=== PATIENT | male | born 1965 | race Caucasian/White ===

== ENCOUNTER 2019-09-22 19:30 | Outpatient (CLI) | payer MEDICARE, MEDICAID | END 2019-09-22 19:31 | disposition home or self-care (01) | LOC: SLEEPLAB 19:30 | PROVIDERS: ATTEND Family Medicine | DX: G47.33 Obstructive sleep apnea (adult) (pediatric) (principal); R53.83 Other fatigue; R06.83 Snoring; Z68.41 Body mass index [BMI] 40.0-44.9, adult | CPT/HCPCS: 95811 ==

== ENCOUNTER 2020-07-20 14:30 | Inpatient (IN) | payer MEDICARE, MEDICAID ==
[2020-07-20 15:34] LABS: #Lymphocytes 0.5 thou/uL (1.20-3.40); #Monocytes 0.8 thou/uL (0.11-0.59); #Neutrophils 4.3 thou/uL (1.40-6.50); %Eosinophils 0.3 % (0.0-10.0); %Lymphocytes 8.4 % (21.0-51.0); %Monocytes 14.2 % (0.0-10.0); %Neutrophils 77.1 % (42.0-75.0); Mean Corpuscular HGB CONC 33.4 g/dL (32.0-36.0); Mean Corpuscular Hemoglobin 27.6 pg (27.0-31.0); Mean Corpuscular Volume 82.5 fL (78.0-98.0); Mean Platelet Volume 7.7 fL (7.4-10.4); Platelet Count 275 thou/uL (130-400); RBC Distribution Width 13.3 % (11.5-14.5); Red Blood Cell (RBC) Count 5.09 mill/uL (4.70-6.10); White Blood Cell (WBC) Count 5.5 thou/uL (4.8-10.8)
--- NOTE | 2020-07-20 15:43 | RAD ---
Exam: Chest one view HISTORY:Cough Comparison: 01/11/2015 FINDINGS: Cardiac silhouette:Enlarged, in part due to portable technique Aorta: Unremarkable Pulmonary vessels: Normal Costophrenic angles: Clear LUNGS: Asymmetric opacification left lung may in part be due to patient position. However, left lung infiltrate cannot be excluded. Additional patchy opacities in the lung bases may represent atelectasis given diminished lung volumes. Pneumothorax: None Osseous abnormalities: None IMPRESSION: 1. Cardiomegaly likely due to portable technique 2. Diminished lung volumes, likely due to poor the upper 3. Asymmetric opacification of the left lung. Correlate for possible left lung infiltrate. [address] radiograph with better inspiration would be beneficial.
--- NOTE | 2020-07-20 15:51 | CT ---
Exam: Head CT without contrast HISTORY: Altered mental status. COVID positive patient. COMPARISON: 01/11/2015 FINDINGS: Hemorrhage: No intraparenchymal hemorrhage or extra-axial hematoma. Brain parenchyma: Stable encephalomalacia and gliosis involving the right frontal and temporal lobes. There is associated expected dilatation of the temporal horn of the left lateral ventricle. There is asymmetric prominence of the frontal horn of the right lateral ventricle, unchanged.Stable cortica lly based calcification along the right frontal cortex Ventricular system: As above Calvarium: Intact. Sinuses and mastoid air cells: Adequate aeration. IMPRESSION: 1. No significant interval change. No acute intracranial process
[2020-07-20 15:58] LABS: ALT (SGPT) 36 U/L (8-55); AST (SGOT) 41 U/L (5-34); Albumin 4.1 g/dL (3.5-5.0); Alkaline Phosphatase 52 U/L (40-110); Anion Gap 12 mmol/L (10-20); BUN (Urea Nitrogen) 19 mg/dL (8.4-25.7); Bilirubin, Total 0.3 mg/dL (0.2-1.2); Calc. Creatinine Clearance 0 mL/min (70-130); Calcium 9.4 mg/dL (7.8-10.44); Carbon Dioxide 36 mmol/L (22-29); Chloride 95 mmol/L (98-107); Estimated GFR-MDRD 85; Globulin 3.9 g/dL (2.4-3.5); Glucose 121 mg/dL (70-105); Lipase 38 U/L (8-78); Potassium 3.4 mmol/L (3.5-5.1); Sodium 140 mmol/L (136-145)
[2020-07-20] MEDS ORDERED: Ibuprofen 800 MG TAB ONE (15:59)
--- NOTE | 2020-07-20 15:59 | CT ---
Exam: Abdomen CT without contrast Pelvic CT without contrast HISTORY: COVID positive patient. Dry cough and fever. Abdominal pain. COMPARISON: None FINDINGS: Abdomen CT: Lung bases:Bibasilar dependent atelectatic changes versus bibasilar pneumonia/aspiration. Trace bilat eral effusions Heart size: Cardiomegaly. No significant pericardial fluid Aorta: Normal caliber. No periaortic fat stranding. IVC: IVC filter is just inferior to the origin of the left and right renal vein Solid organs: Limited evaluation by the lack of IV contrast. Grossly no solid organ abnormality. Lymph nodes: No gastrohepatic, retrocrural or periportal lymphadenopathy Gallbladder: Grossly unremarkable. No CT evidence of cholecystitis Mesentery: No mass, lymphadenopathy, free air or free fluid Kidneys: Bilaterally, no hydronephrosis, nephrolithiasis or perinephric fat stranding. Bilateral uret ers have a normal caliber. No hydroureter, periureteral fat stranding or ureterolithiasis. Alimentary canal: Limited evaluation by the lack of oral contrast. No evidence of a bowel obstruction . Normal ileocecal junction. Normal caliber appendix. Scattered diverticulosis. No diverticulitis. CT PELVIS: No mass, adenopathy, free air or free fluid. Urinary bladder: Hyperdensity along the posterior floor the bladder is nonspecific and may represent bladder wall calcification. Osseous structures: No lytic or blastic lesions IMPRESSION: 1. No evidence of obstructive uropathy 2. Normal caliber appendix 3. No bowel obstruction 4. Bibasilar pleural effusion with lower lobe consolidation due to atelectasis, pneumonia or aspirati on.
[2020-07-20] MEDS ORDERED: cefTRIAXone\\ROCEPHIN 2 GM VIAL ONE (16:17)
[2020-07-20] MEDS ORDERED: Azithromycin 500 MG VIAL ONE (16:38)
[2020-07-20 18:55] LABS: Lactic Acid 0.8 mmol/L (0.5-2.2)
--- NOTE | 2020-07-20 21:07 | PDOC.HHP ---
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 Of note he tested positive for Covid in the nursing facility. It was unclear the date however I talked to his who said this was 6 days ago. Besides increasing oxygen demands it was noted that he had a few episodes of seizure activity a day before presentation. He also had poor bowel movement and distended abdomen with concerns for possible intestinal obstruction. He was sent to the ED for evaluation this afternoon. At presentation his blood pressure was 156/88, pulse 81 respiratory 31 temperature 100.4 and saturating at 94 on 4 L oxygen. WBC was generally unremarkable, never had hypokalemia of 3.4 lactate 2.2 mildly elevated AST at 41.. Chest x-ray showed cardiomegaly diminished lung volumes and asymmetrical opacification on lung on the left. CT scanning of his abdomen showed no acute events. However bibasilar pleural effusion was noted with lower lobe consolidation due to atelectasis pneumonia/aspiration. He was given azithromycin and ceftriaxone. Hospitalist team was consulted for admission. Hospitalist ROS - Review of Systems ROS unobtainable: due to mental status Hospitalist History - Past Medical History Other Medical History: Seizure disorder, CVA, - Past Surgical History Past Surgical History: reports: no pertinent history - Family History Family History: reports: no pertinent history - Social History Other Social History: Lives in senior living. - Exam General Appearance: ill appearing General - other findings: Respiratory distress Heart: RRR, no murmur, no rubs Respiratory: tachypneic Respiratory - other findings: Bilateral coarse breath sounds Gastrointestinal - other findings: Slightly distended. No apparent tenderness. Bowel sounds present Extremities: no cyanosis, no clubbing, 1+ LE edema Neurological: hemiplegia. negative: facial droop Neurological - other findings: Juan Carlos 1/5 right and left upper limb Psychiatric: somnolent, lethargic Psychiatric - other findings: Oriented to self. Not place and time Hospitalist Results - Labs Result Diagrams: 07/20/20 15:22 07/20/20 15:22 Lab results: WBC 5.5 thou/uL (4.8-10.8) 07/20/20 15:22 Hgb 14.0 g/dL (14.0-18.0) 07/20/20 15:22 Hct 42.0 % (42.0-52.0) 07/20/20 15:22 MCV 82.5 fL (78.0-98.0) 07/20/20 15:22 Plt Count 275 thou/uL (130-400) 07/20/20 15:22 Neutrophils % 77.1 % (42.0-75.0) H 07/20/20 15:22 Sodium 140 mmol/L (136-145) 07/20/20 15:22 Potassium 3.4 mmol/L (3.5-5.1) L 07/20/20 15:22 Chloride 95 mmol/L (98-107) L 07/20/20 15:22 Carbon Dioxide 36 mmol/L (22-29) H 07/20/20 15:22 BUN 19 mg/dL (8.4-25.7) 07/20/20 15:22 Creatinine 0.92 mg/dL (0.7-1.3) 07/20/20 15:22 Glucose 121 mg/dL (70-105) H 07/20/20 15:22 Lactic Acid 0.8 mmol/L (0.5-2.2) 07/20/20 18:33 Calcium 9.4 mg/dL (7.8-10.44) 07/20/20 15:22 Total Bilirubin 0.3 mg/dL (0.2-1.2) 07/20/20 15:22 AST 41 U/L (5-34) H 07/20/20 15:22 ALT 36 U/L (8-55) 07/20/20 15:22 Alkaline Phosphatase 52 U/L (40-110) 07/20/20 15:22 Troponin I 0.028 ng/mL (< 0.028) 07/20/20 15:22 Serum Total Protein 8.0 g/dL (6.0-8.3) 07/20/20 15:22 Albumin 4.1 g/dL (3.5-5.0) 07/20/20 15:22 Lipase 38 U/L (8-78) 07/20/20 15:22 Hospitalist H&P A/P - Plan Plan: This is a 55-year-old male patient with a history of CVA with residual right- sided weakness, seizure disorder, hypertension who was brought him to the ED from his nursing facility on account of increasing oxygen demand and alteration in mental state. He tested positive for Covid 6 days ago Acute hypoxic respiratory failure Likely secondary to Covid pneumonia/bacterial pneumonia Oxygen therapy as needed High flow oxygen if demands increase Transfer to ICU if 2 months resident Pneumonia due to Covid Worsening oxygen demand, infiltrate seen on lower lung archuleta on CT. We will start him on convalescent plasma and steroids Unable to start remdesivir given that he is out of the window. D-dimer orderedstart high-dose VTE Lovenox prophylaxis if elevated Monitor closely History of seizure disorder Noted to have been having seizures a day ago Start levetiracetam Seizure precautions Consider neuro consult in a.m. Hypokalemia Mild Electrolyte replacement protocol Monitor BM Previous stroke Residual right-sided deficit VT prophylaxisLovenox CODE STATUSfull code
[2020-07-20] MEDS ORDERED: Dexamethasone 10 MG in Sodium Chloride 0.9% 50 ML IVPB SCH (21:30)
[2020-07-20 23:00] LABS: Prothrombin Time 13.6 sec (12.0-14.7)
[2020-07-20] MEDS ORDERED: Electrolyte Replacement Protoc 1 EACH EACH FS SCH (23:00)
[2020-07-20] MEDS ORDERED: levETIRAcetam in NS 1,000 MG in Premix Bag 1 BAG IVPB SCH (23:30)
[2020-07-21 01:19] LABS: Bacteria/HPF None Seen HPF (None Seen); Bilirubin Negative (Negative); Blood, Urine Negative (Negative); Clarity Clear (Clear); Glucose, Urine (Dipstick) Normal (Negative); Ketone, Urine Trace mg/dL (Negative); Leukocyte Negative Leu/uL (Negative); Mucous/LPF 1+ LPF (<2+); Nitrite Negative (Negative); Protein, Urine (Dipstick) 50 mg/dL (Neg-Trace); RBC/HPF 0-3 HPF (0-3); Specific Gravity, Urine 1.028 (1.002-1.036); Squamous Epithelial None Seen HPF (0-3); Urobilinogen Normal mg/dL (Less than 2); WBC/HPF 0-3 HPF (0-3); Yeast-Budding 1+ HPF (None Seen); pH, Urine 5.5 (5.0-9.0)
[2020-07-21 01:21] LABS: Urine Culture Reflex No No
[2020-07-21 03:43] VITALS: BMI 41.2
[2020-07-21] MEDS ORDERED: Acetaminophen 650 MG Suppository PR PRN (04:38)
[2020-07-21 06:19] LABS: #Basophils 0.1 thou/uL (0.0-0.2); #Lymphocytes 0.2 thou/uL (1.20-3.40); #Monocytes 0.3 thou/uL (0.11-0.59); #Neutrophils 3.6 thou/uL (1.40-6.50); %Basophils 1.8 % (0.0-1.0); %Eosinophils 0.1 % (0.0-10.0); %Lymphocytes 5.8 % (21.0-51.0); %Monocytes 6.8 % (0.0-10.0); %Neutrophils 85.6 % (42.0-75.0); Hemoglobin 12.6 g/dL (14.0-18.0); Mean Corpuscular HGB CONC 32.4 g/dL (32.0-36.0); Mean Corpuscular Hemoglobin 26.7 pg (27.0-31.0); Mean Corpuscular Volume 82.4 fL (78.0-98.0); Mean Platelet Volume 8.1 fL (7.4-10.4); Platelet Count 261 thou/uL (130-400); RBC Distribution Width 13.3 % (11.5-14.5); Red Blood Cell (RBC) Count 4.73 mill/uL (4.70-6.10); White Blood Cell (WBC) Count 4.2 thou/uL (4.8-10.8)
[2020-07-21 06:38] LABS: Anion Gap 17 mmol/L (10-20); BUN (Urea Nitrogen) 21 mg/dL (8.4-25.7); Calc. Creatinine Clearance 199 mL/min (70-130); Calcium 8.8 mg/dL (7.8-10.44); Carbon Dioxide 27 mmol/L (22-29); Chloride 100 mmol/L (98-107); Estimated GFR-MDRD Greater than 90; Glucose 148 mg/dL (70-105); Potassium 3.7 mmol/L (3.5-5.1); Sodium 140 mmol/L (136-145)
[2020-07-21] MEDS ORDERED: FLU VACC QS2020-21(6MOS UP)/PF 60 MCG/0.5 ML SYRINGE IM ONE (09:00)
[2020-07-21] MEDS: levETIRAcetam in NS 1,000 MG in Premix Bag 1 BAG IVPB SCH ×2 (09:34→21:28)
--- NOTE | 2020-07-21 10:08 | RAD ---
CHEST 1 VIEW: Date: 07/21/2020 INDICATION: Hypoxia. COMPARISON: 07/20/2020. FINDINGS: There is mild right basilar atelectasis. Cardiomegaly persists. No pleural effusion or pneumothorax i s evident. No acute osseous abnormality is evident. IMPRESSION: No acute abnormality. Persistent right basilar atelectasis. POS: BH
[2020-07-21] MEDS: Dexamethasone 10 MG in Sodium Chloride 0.9% 50 ML IVPB SCH (12:05)
[2020-07-21] MEDS: Hydrochlorothiazide 25 MG TAB PO SCH (12:07)
[2020-07-21 14:02] LABS: SARS-CoV-2 MS2 Positive; SARS-CoV-2 N Gene Positive; SARS-CoV-2 S Gene Positive; SARS-CoV-2 by NAA DETECTED (NotDetected); SARS-CoV-2 orf1ab Positive
--- NOTE | 2020-07-21 15:55 | PQF ---
CLINICAL DOCUMENTATION CLARIFICATION FORM: Dear Dr. Meza Date: 07/21/20 Please exercise your independent, professional judgment in responding to the clarification form. Clinical indicators are provided on the bottom of this form for your review. Please check appropriate box(es): [X ] Sepsis due to: viral pneumonia vs bacterial Due to: [ ] Device (please specify) [ ] Severe sepsis with associated acute organ dysfunction: [ ] Acute Respiratory Failure [ ] Acute Kidney injury w/o ATN [ ] Acute Kidney Injury w ATN [ ] Encephalopathy (metabolic) (septic) [ ] Disseminated Intravascular Coagulopathy (DIC) [ ] Hepatic Failure [ ] Additional/Other: please specify: [ ] Localized infection without sepsis [ ] SIRS due to non-infectious process (please specify etiology) [ ] with organ dysfunction [ ] without organ dysfunction [ ] Other diagnosis [ ] Unable to determine In addition, please specify: Present on Admission (POA): [ X] Yes [ ] No [ ] Unable to determine For continuity of documentation, please document condition throughout progress notes and discharge summary. Thank You. To be completed by CDI/Coding staff for physician review: CLINICAL INDICATORS - SIGNS / SYMPTOMS / LABS / RESULTS AND LOCATION IN MR ER NOTE: "SEPSIS" RR 31 TEMP 100.4 WBC 07/21: 4.2 CRP 07/20: 7.2 RISK FACTORS / RESULTS AND LOCATION IN MR COVID + (ER, H&P) PNEUMONIA (ER, H&P) TREATMENTS / RESULTS AND LOCATION IN MR IV AZITHROMYCIN (ER) IV ROCEPHIN (ER) IV FLUIDS (ER) BLOOD CULTURES 07/20 CDS Signature: Emiliana Aflaro RN Phone #: [phone] Date: 07/21/20 This is a permanent part of the Medical Record [facility]
--- NOTE | 2020-07-21 18:00 | PDOC.HOSPP ---
- Subjective Encounter Date: 07/21/20 Encounter Time: 11:30 Subjective: F/u: COVID The patient was seen sitting up in his chair. He reported some chest congestion. He denies significant shortness of breath. He does have an occasional cough. THe patient states the year is 2012 and the month is October. He knows his birthday. He stated the city was [place] - Objective Vital Signs & Weight: Vital Signs (12 hours) Temp Pulse Resp BP Pulse Ox 07/21/20 16:34 98.8 F 66 22 H 159/88 H 92 L 07/21/20 13:40 98 F 22 H 169/94 H 94 L 07/21/20 09:35 99.3 F 76 22 H 152/88 H 93 L 07/21/20 08:50 92 L Weight Admit Weight 304 lb 3.2 oz Weight 304 lb 3.2 oz I&O: 07/20/20 07/21/20 07/22/20 06:59 06:59 06:59 Intake Total 150 0 Output Total 5 Balance -1905 0 Result Diagrams: 07/21/20 05:44 07/21/20 05:44 Hospitalist ROS - Review of Systems Constitutional: denies: fever, chills - Medication Medications: Active Medications Generic Name Dose Route Start Last Admin Trade Name Freq PRN Reason Stop Dose Admin Acetaminophen 650 mg 07/21/20 04:38 07/21/20 05:54 Acetaminophen 650 Mg Suppository [place] 650 mg Q4H PRN Administration Headache/Fever or Pain Hydrochlorothiazide 25 mg 07/21/20 09:00 07/21/20 12:07 Hydrochlorothiazide 25 Mg Tab PO 25 mg DAILY TINA Administration Dexamethasone 10 mg/ Sodium 51 mls @ 100 mls/hr 07/21/20 09:00 07/21/20 12:05 Chloride IVPB 51 mls DAILY TINA Administration Levetiracetam 1,000 mg/ Device 100 mls @ 200 mls/hr 07/21/20 09:00 07/21/20 09:34 IVPB 100 mls BID TINA Administration Metoprolol Succinate 100 mg 07/21/20 09:00 07/21/20 12:07 Metoprolol Succinate Xl 100 Mg Tab PO 100 mg DAILY TINA Administration - Exam General Appearance: NAD General - other findings: morbidly obese Eye: PERRL, anicteric sclera ENT: normocephalic atraumatic, no oropharyngeal lesions Neck: no JVD Heart: RRR, no murmur, no gallops, no rubs Respiratory - other findings: mild crackles at the bases Gastrointestinal: soft, non-tender, non-distended, normal bowel sounds Gastrointestinal - other findings: morbidly obese Extremities: no cyanosis, no clubbing, no edema Skin: normal turgor, no lesions, no rashes Neurological: cranial nerve grossly intact, normal sensation to touch, no weakness, no focal deficits Hosp A/P - Plan CT head 07/20: no significant disease Chest x ray 07/20: cardiomegaly. Asymmetric opacification of the left lung. CT abdomen/pelvis: bibasilar pleural effusion with lower consolidation due to atelectasis, pneumonia or aspiration This is a 55 year old male with past medical history of BPH, epilepsy, GERD, hypertension and hemorrhagic CVA who presented with increasing oxygen requirements and some seizure Acute hypoxic respiratory failure secondary to COVID pneumonia - chest X ray showed opacification of the left lung - start dexamethasone Seizures - continue keppra 1000 mg bid Hypertension - continue hydrochlorothiazide and metoprolol Code status: full code
[2020-07-21] MEDS: guaiFENesin ER 600 MG TAB PO SCH (21:28)
[2020-07-21] MEDS: Tamsulosin HCl 0.4 MG CAP PO SCH (21:28)
[2020-07-22] MEDS: Acetaminophen 325 MG TAB PO PRN ×4 (03:42→20:41)
[2020-07-22 07:08] LABS: Hemoglobin 12.5 g/dL (14.0-18.0); Mean Corpuscular HGB CONC 31.8 g/dL (32.0-36.0); Mean Corpuscular Hemoglobin 26.7 pg (27.0-31.0); Mean Corpuscular Volume 84.1 fL (78.0-98.0); Mean Platelet Volume 7.9 fL (7.4-10.4); Platelet Count 304 thou/uL (130-400); RBC Distribution Width 13.3 % (11.5-14.5); Red Blood Cell (RBC) Count 4.69 mill/uL (4.70-6.10); White Blood Cell (WBC) Count 7.6 thou/uL (4.8-10.8)
[2020-07-22] MEDS: guaiFENesin ER 600 MG TAB PO SCH ×2 (07:54→20:41)
[2020-07-22] MEDS: Dexamethasone 10 MG in Sodium Chloride 0.9% 50 ML IVPB SCH (07:54)
[2020-07-22] MEDS: Hydrochlorothiazide 25 MG TAB PO SCH (07:59)
[2020-07-22] MEDS: levETIRAcetam in NS 1,000 MG in Premix Bag 1 BAG IVPB SCH ×2 (10:09→20:40)
--- NOTE | 2020-07-22 15:58 | PDOC.HOSPP ---
- Subjective Encounter Date: 07/22/20 Encounter Time: 15:56 Subjective: F/u : COVID The patient appears more alert today. He reports intermittent cough and shortness of breath. He has not gotten out of bed. He knows he is in [facility] . He is on 5L saturating 96% - Objective Vital Signs & Weight: Vital Signs (12 hours) Temp Pulse Resp BP Pulse Ox 07/22/20 15:45 99.2 F 71 20 159/82 H 94 L 07/22/20 11:21 97.2 F L 65 18 162/92 H 94 L 07/22/20 08:00 98.2 F 72 18 163/93 H 94 L 07/22/20 04:00 98.3 F 76 26 H 170/91 H 96 Weight Admit Weight 304 lb 3.2 oz Weight 304 lb 3.2 oz Most Recent Monitor Data Heart Rate from ECG 74 I&O: 07/21/20 07/22/20 07/23/20 06:59 06:59 06:59 Intake Total 150 1190 Output Total 2055 Balance -1905 1190 Result Diagrams: 07/22/20 06:45 07/21/20 05:44 Hospitalist ROS - Review of Systems Constitutional: denies: fever, chills - Medication Medications: Active Medications Generic Name Dose Route Start Last Admin Trade Name Freq PRN Reason Stop Dose Admin Acetaminophen 650 mg 07/21/20 04:38 07/21/20 05:54 Acetaminophen 650 Mg Suppository [place] 650 mg Q4H PRN Administration Headache/Fever or Pain Acetaminophen 650 mg 07/22/20 03:29 07/22/20 14:07 Acetaminophen 325 Mg Tab PO 650 mg Q4H PRN Administration Headache/Fever or Pain Guaifenesin 600 mg 07/21/20 21:00 07/22/20 07:54 Guaifenesin Er 600 Mg Tab PO 600 mg Q12HR TINA Administration Hydrochlorothiazide 25 mg 07/21/20 09:00 07/22/20 07:59 Hydrochlorothiazide 25 Mg Tab PO 25 mg DAILY TINA Administration Dexamethasone 10 mg/ Sodium 51 mls @ 100 mls/hr 07/21/20 09:00 07/22/20 07:54 Chloride IVPB 51 mls DAILY TINA Administration Levetiracetam 1,000 mg/ Device 100 mls @ 200 mls/hr 07/21/20 09:00 07/22/20 10:09 IVPB 100 mls BID TINA Administration Metoprolol Succinate 100 mg 07/21/20 09:00 07/22/20 07:59 Metoprolol Succinate Xl 100 Mg Tab PO 100 mg DAILY TINA Administration Tamsulosin HCl 0.4 mg 07/21/20 21:00 07/21/20 21:28 Tamsulosin Hcl 0.4 Mg Cap PO 0.4 mg HS TINA Administration - Exam General Appearance: NAD, awake alert General - other findings: morbidly obese ENT: normocephalic atraumatic, no oropharyngeal lesions Neck: no JVD Heart: RRR, no murmur, no gallops, no rubs Respiratory: CTAB, no wheezes, no rales, no ronchi Gastrointestinal: soft, non-tender, non-distended, normal bowel sounds Extremities: no cyanosis, no clubbing, no edema Skin: normal turgor, no lesions, no rashes Hosp A/P - Plan CT head 07/20: no significant disease Chest x ray 07/20: cardiomegaly. Asymmetric opacification of the left lung. CT abdomen/pelvis: bibasilar pleural effusion with lower consolidation due to atelectasis, pneumonia or aspiration This is a 55 year old male with past medical history of BPH, epilepsy, GERD, hypertension and hemorrhagic CVA who presented with increasing oxygen requirements and some seizure Acute hypoxic respiratory failure secondary to COVID pneumonia vs mild pulmonary edema - chest X ray showed opacification of the left lung - started dexamethasone. He received convalescent plasma - out of window for remdesivir. - will add dexamethasone - on 5L nasal cannula, attempt to wean further to maintain sat > 92% - will give one dose of lasix 20 mg IV due to pleural effusion Seizures - continue keppra 1000 mg bid Hypertension - continue hydrochlorothiazide and metoprolol Code status: full code
[2020-07-22] MEDS ORDERED: Furosemide 20 MG/2 ML VIAL SLOW IVP SCH (16:00)
[2020-07-22] MEDS: Tamsulosin HCl 0.4 MG CAP PO SCH (20:41)
[2020-07-22] MEDS: Doxycycline 100 MG CAP PO SCH (20:41)
[2020-07-23 06:33] LABS: Hemoglobin 12.3 g/dL (14.0-18.0); Mean Corpuscular HGB CONC 32.4 g/dL (32.0-36.0); Mean Corpuscular Hemoglobin 27.2 pg (27.0-31.0); Mean Corpuscular Volume 83.9 fL (78.0-98.0); Mean Platelet Volume 7.8 fL (7.4-10.4); Platelet Count 319 thou/uL (130-400); RBC Distribution Width 13.3 % (11.5-14.5); Red Blood Cell (RBC) Count 4.51 mill/uL (4.70-6.10)
[2020-07-23] MEDS: Doxycycline 100 MG CAP PO SCH ×2 (07:48→20:52)
[2020-07-23] MEDS: Hydrochlorothiazide 25 MG TAB PO SCH (07:48)
[2020-07-23] MEDS: guaiFENesin ER 600 MG TAB PO SCH ×2 (07:48→20:52)
[2020-07-23] MEDS: levETIRAcetam in NS 1,000 MG in Premix Bag 1 BAG IVPB SCH ×2 (07:49→20:52)
[2020-07-23] MEDS: Dexamethasone 10 MG in Sodium Chloride 0.9% 50 ML IVPB SCH (09:42)
[2020-07-23] MEDS: Acetaminophen 325 MG TAB PO PRN ×2 (09:43→17:44)
--- NOTE | 2020-07-23 17:32 | PDOC.HOSPP ---
- Subjective Encounter Date: 07/23/20 Encounter Time: 08:00 Subjective: F/u: COVID The patient is more alert today, however is not eating much. He reports decreased appetite. He is unsure if he had any bowel movements. He has been weaned down to 3L nasal cannula - Objective Vital Signs & Weight: Vital Signs (12 hours) Temp Pulse Resp BP Pulse Ox 07/23/20 15:43 98.4 F 62 18 154/98 H 93 L 07/23/20 11:16 97.6 F 81 18 148/67 H 92 L 07/23/20 08:00 97.7 F 71 18 166/85 H 91 L Weight Admit Weight 304 lb 3.2 oz Weight 304 lb 3.2 oz Most Recent Monitor Data Heart Rate from ECG 74 I&O: 07/22/20 07/23/20 07/24/20 06:59 06:59 06:59 Intake Total 5378 434 8916 Output Total 600 Balance 3313 853 0315 Result Diagrams: 07/23/20 06:09 07/21/20 05:44 Hospitalist ROS - Review of Systems Constitutional: denies: fever, chills - Medication Medications: Active Medications Generic Name Dose Route Start Last Admin Trade Name Freq PRN Reason Stop Dose Admin Acetaminophen 650 mg 07/21/20 04:38 07/21/20 05:54 Acetaminophen 650 Mg Suppository [place] 650 mg Q4H PRN Administration Headache/Fever or Pain Acetaminophen 650 mg 07/22/20 03:29 07/23/20 09:43 Acetaminophen 325 Mg Tab PO 650 mg Q4H PRN Administration Headache/Fever or Pain Doxycycline Hyclate 100 mg 07/22/20 21:00 07/23/20 07:48 Doxycycline 100 Mg Cap PO 100 mg BID TINA Administration Guaifenesin 600 mg 07/21/20 21:00 07/23/20 07:48 Guaifenesin Er 600 Mg Tab PO 600 mg Q12HR TINA Administration Hydrochlorothiazide 25 mg 07/21/20 09:00 07/23/20 07:48 Hydrochlorothiazide 25 Mg Tab PO 25 mg DAILY TINA Administration Dexamethasone 10 mg/ Sodium 51 mls @ 100 mls/hr 07/21/20 09:00 07/23/20 09:42 Chloride IVPB 51 mls DAILY TINA Administration Levetiracetam 1,000 mg/ Device 100 mls @ 200 mls/hr 07/21/20 09:00 07/23/20 07:49 IVPB 100 mls BID TINA Administration Metoprolol Succinate 100 mg 07/21/20 09:00 07/23/20 07:49 Metoprolol Succinate Xl 100 Mg Tab PO 100 mg DAILY TINA Administration Tamsulosin HCl 0.4 mg 07/21/20 21:00 07/22/20 20:41 Tamsulosin Hcl 0.4 Mg Cap PO 0.4 mg HS TINA Administration - Exam General Appearance: NAD, awake alert General - other findings: obese Eye: PERRL, anicteric sclera ENT: normocephalic atraumatic, no oropharyngeal lesions Neck: no JVD Heart: RRR, no murmur, no gallops, no rubs Respiratory: CTAB, no wheezes, no rales, no ronchi Gastrointestinal: soft, non-tender, non-distended, normal bowel sounds, no hepatomegaly Extremities: no cyanosis, no clubbing, no edema Skin: normal turgor, no lesions, no rashes Neurological: cranial nerve grossly intact, normal sensation to touch, no weakness Musculoskeletal: normal tone, normal strength, no muscle wasting Psychiatric: A&O x 3 Hosp A/P - Plan CT head 07/20: no significant disease Chest x ray 07/20: cardiomegaly. Asymmetric opacification of the left lung. CT abdomen/pelvis: bibasilar pleural effusion with lower consolidation due to atelectasis, pneumonia or aspiration This is a 55 year old male with past medical history of BPH, epilepsy, GERD, hypertension and hemorrhagic CVA who presented with increasing oxygen requirements and some seizure Acute hypoxic respiratory failure secondary to COVID pneumonia vs mild pulmonary edema - chest X ray showed opacification of the left lung. - continue dexamethasone. He received convalescent plasma - out of window for remdesivir. -s/p one dose of lasix 07/22. Continue to wean oxygen, currently down to 3L Seizures - continue keppra 1000 mg bid Hypertension - continue hydrochlorothiazide and metoprolol Dispo: PT recommends mcc placement Code status: full code
[2020-07-23] MEDS: Tamsulosin HCl 0.4 MG CAP PO SCH (20:52)
[2020-07-24] MEDS: Acetaminophen 325 MG TAB PO PRN ×2 (08:25→15:25)
[2020-07-24] MEDS: Dexamethasone 10 MG in Sodium Chloride 0.9% 50 ML IVPB SCH (08:25)
[2020-07-24] MEDS: Doxycycline 100 MG CAP PO SCH ×2 (08:25→20:45)
[2020-07-24] MEDS: Hydrochlorothiazide 25 MG TAB PO SCH (08:26)
[2020-07-24] MEDS: guaiFENesin ER 600 MG TAB PO SCH ×2 (08:26→20:45)
[2020-07-24] MEDS: levETIRAcetam in NS 1,000 MG in Premix Bag 1 BAG IVPB SCH ×2 (08:28→20:45)
[2020-07-24] MEDS ORDERED: Megestrol Acetate 40 MG TAB PO SCH (15:22)
--- NOTE | 2020-07-24 15:24 | PDOC.HOSPP ---
- Subjective Encounter Date: 07/24/20 Encounter Time: 08:00 Subjective: F/u: COVID The patient was noted to have intermittent dry cough. He has no shortness of breath. He is on 3L nasal cannula, plans to wean down further He is still not eating much and just asked for soda. He also complains of back pain and is not ambulating - Objective Vital Signs & Weight: Vital Signs (12 hours) Temp Pulse Resp BP Pulse Ox 07/24/20 09:15 3 L 07/24/20 09:00 98.0 F 69 20 173/95 H 92 L 07/24/20 05:57 155/83 H 07/24/20 04:00 69 20 92 L Weight Admit Weight 304 lb 3.2 oz Weight 304 lb 3.2 oz Most Recent Monitor Data Heart Rate from ECG 74 I&O: 07/23/20 07/24/20 07/25/20 06:59 06:59 06:59 Intake Total 920 2059 Output Total 600 Balance 320 2059 Result Diagrams: 07/23/20 06:09 07/21/20 05:44 Hospitalist ROS - Review of Systems Constitutional: denies: fever, chills - Medication Medications: Active Medications Generic Name Dose Route Start Last Admin Trade Name Freq PRN Reason Stop Dose Admin Acetaminophen 650 mg 07/21/20 04:38 07/21/20 05:54 Acetaminophen 650 Mg Suppository [place] 650 mg Q4H PRN Administration Headache/Fever or Pain Acetaminophen 650 mg 07/22/20 03:29 07/24/20 08:25 Acetaminophen 325 Mg Tab PO 650 mg Q4H PRN Administration Headache/Fever or Pain Doxycycline Hyclate 100 mg 07/22/20 21:00 07/24/20 08:25 Doxycycline 100 Mg Cap PO 100 mg BID TINA Administration Guaifenesin 600 mg 07/21/20 21:00 07/24/20 08:26 Guaifenesin Er 600 Mg Tab PO 600 mg Q12HR TINA Administration Hydrochlorothiazide 25 mg 07/21/20 09:00 07/24/20 08:26 Hydrochlorothiazide 25 Mg Tab PO 25 mg DAILY TINA Administration Dexamethasone 10 mg/ Sodium 51 mls @ 100 mls/hr 07/21/20 09:00 07/24/20 08:25 Chloride IVPB 51 mls DAILY TINA Administration Levetiracetam 1,000 mg/ Device 100 mls @ 200 mls/hr 07/21/20 09:00 07/24/20 08:28 IVPB 100 mls BID TINA Administration Metoprolol Succinate 100 mg 07/21/20 09:00 07/24/20 08:25 Metoprolol Succinate Xl 100 Mg Tab PO 100 mg DAILY TINA Administration Tamsulosin HCl 0.4 mg 07/21/20 21:00 07/23/20 20:52 Tamsulosin Hcl 0.4 Mg Cap PO 0.4 mg HS TINA Administration - Exam General Appearance: NAD, awake alert General - other findings: morbidly obese Eye: PERRL, anicteric sclera ENT: normocephalic atraumatic, no oropharyngeal lesions Neck: no JVD Heart: RRR, no murmur, no gallops, no rubs Respiratory: CTAB, no wheezes, no rales, no ronchi, normal percussion Gastrointestinal: soft, non-tender, non-distended, normal bowel sounds Extremities: no cyanosis, no clubbing, no edema Skin: normal turgor, no lesions, no rashes Hosp A/P - Plan CT head 07/20: no significant disease Chest x ray 07/20: cardiomegaly. Asymmetric opacification of the left lung. CT abdomen/pelvis: bibasilar pleural effusion with lower consolidation due to atelectasis, pneumonia or aspiration This is a 55 year old male with past medical history of BPH, epilepsy, GERD, hypertension and hemorrhagic CVA who presented with increasing oxygen requirements and some seizure Acute hypoxic respiratory failure secondary to COVID pneumonia vs mild pulmonary edema - chest X ray showed opacification of the left lung. - continue dexamethasone. He received convalescent plasma - out of window for remdesivir. -s/p one dose of lasix 07/22. Continue to wean oxygen to maintain sat > 92% Decreased Appetite -will add megace 40 mg daily - dietary is following and ordered glucerna shakes bid Seizures - continue keppra 1000 mg bid Hypertension - continue hydrochlorothiazide and metoprolol Anemia - HB 12, stable Dispo: PT recommends snf placement Code status: full code
[2020-07-24] MEDS: Tamsulosin HCl 0.4 MG CAP PO SCH (20:45)
[2020-07-25] MEDS: Doxycycline 100 MG CAP PO SCH ×2 (08:33→20:21)
[2020-07-25] MEDS: Megestrol Acetate 40 MG TAB PO SCH (08:33)
[2020-07-25] MEDS: guaiFENesin ER 600 MG TAB PO SCH ×2 (08:33→20:21)
[2020-07-25] MEDS: Dexamethasone 10 MG in Sodium Chloride 0.9% 50 ML IVPB SCH (08:33)
[2020-07-25] MEDS: Hydrochlorothiazide 25 MG TAB PO SCH (08:33)
[2020-07-25] MEDS: levETIRAcetam in NS 1,000 MG in Premix Bag 1 BAG IVPB SCH ×2 (11:05→20:34)
[2020-07-25] MEDS: Acetaminophen 325 MG TAB PO PRN (12:38)
--- NOTE | 2020-07-25 17:27 | PDOC.HOSPP ---
- Subjective Encounter Date: 07/25/20 Encounter Time: 17:25 Subjective: f/u for COVID PNA s/p convalescent plasma, receiving Decadron/Doxycycline/O2 via NC. Feels weak and not ambulating much. - Objective Vital Signs & Weight: Vital Signs (12 hours) Temp Pulse Resp BP Pulse Ox 07/25/20 09:00 97.5 F L 71 18 139/81 97 07/25/20 08:45 3 L Weight Admit Weight 304 lb 3.2 oz Weight 304 lb 3.2 oz Most Recent Monitor Data Heart Rate from ECG 74 I&O: 07/24/20 07/25/20 07/26/20 06:59 06:59 06:59 Intake Total 2059 Balance 2059 Result Diagrams: 07/23/20 06:09 07/21/20 05:44 Additional Labs: Accuchecks 07/24/20 17:54 POC Glucose 369 H Microbiology 07/20/20 15:22 Venous blood - Right Hand Blood Culture - Final Coagulase Neg Staphylococcus Coagulase Neg Staphylococcus#2 07/20/20 15:22 Venous blood - Left Arm Blood Culture - Final NO GROWTH IN 5 DAYS Laboratory Tests 07/20/20 07/20/20 07/20/20 15:22 18:33 19:14 Lactic Acid 2.2 0.8 C-Reactive Protein SARS-CoV-2 (PCR) DETECTED A* 07/20/20 22:28 Lactic Acid C-Reactive Protein 7.24 H SARS-CoV-2 (PCR) Hospitalist ROS - Medication Medications: Active Medications Generic Name Dose Route Start Last Admin Trade Name Freq PRN Reason Stop Dose Admin Acetaminophen 650 mg 07/21/20 04:38 07/21/20 05:54 Acetaminophen 650 Mg Suppository [place] 650 mg Q4H PRN Administration Headache/Fever or Pain Acetaminophen 650 mg 07/22/20 03:29 07/25/20 12:38 Acetaminophen 325 Mg Tab PO 650 mg Q4H PRN Administration Headache/Fever or Pain Doxycycline Hyclate 100 mg 07/22/20 21:00 07/25/20 08:33 Doxycycline 100 Mg Cap PO 100 mg BID TINA Administration Guaifenesin 600 mg 07/21/20 21:00 07/25/20 08:33 Guaifenesin Er 600 Mg Tab PO 600 mg Q12HR TINA Administration Hydrochlorothiazide 25 mg 07/21/20 09:00 07/25/20 08:33 Hydrochlorothiazide 25 Mg Tab PO 25 mg DAILY TINA Administration Dexamethasone 10 mg/ Sodium 51 mls @ 100 mls/hr 07/21/20 09:00 07/25/20 08:33 Chloride IVPB 51 mls DAILY TINA Administration Levetiracetam 1,000 mg/ Device 100 mls @ 200 mls/hr 07/21/20 09:00 07/25/20 11:05 IVPB 100 mls BID TINA Administration Megestrol Acetate 40 mg 07/25/20 09:00 07/25/20 08:33 Megestrol Acetate 40 Mg Tab PO 40 mg DAILY TINA Administration Metoprolol Succinate 100 mg 07/21/20 09:00 07/25/20 08:33 Metoprolol Succinate Xl 100 Mg Tab PO 100 mg DAILY TINA Administration Tamsulosin HCl 0.4 mg 07/21/20 21:00 07/24/20 20:45 Tamsulosin Hcl 0.4 Mg Cap PO 0.4 mg HS TINA Administration - Exam General Appearance: NAD, awake alert Eye: PERRL, anicteric sclera ENT: normocephalic atraumatic, no oropharyngeal lesions, moist mucosa Neck: supple, symmetric, no JVD, no thyromegaly, no lymphadenopathy Heart: RRR, no gallops, no rubs, normal peripheral pulses Heart - other findings: S1, S2 Respiratory: CTAB, no wheezes, no rales, no ronchi, normal chest expansion Gastrointestinal: soft, non-tender, non-distended, normal bowel sounds, no palpable masses, no hepatomegaly Gastrointestinal - other findings: obese Extremities: no cyanosis, no clubbing Skin: normal turgor, no lesions Neurological: cranial nerve grossly intact, no new deficit Musculoskeletal: normal tone, generalized weakness Psychiatric: normal affect, A&O x 3 Hosp A/P (1) Pneumonia due to COVID-19 virus Code(s): U07.1 - COVID-19; J12.89 - OTHER VIRAL PNEUMONIA Status: Acute Plan: Continue Doxycycline/Dexamethasone, s/p convalescent plasma, O2 supplementation (2) Acute respiratory failure with hypoxia Code(s): J96.01 - ACUTE RESPIRATORY FAILURE WITH HYPOXIA Status: Acute Plan: O2 @ 3L/min NC, bronchodilators PRN (3) Seizures Code(s): R56.9 - UNSPECIFIED CONVULSIONS Status: Chronic Plan: Continue Keppra 1000mg BID (4) Anorexia Code(s): R63.0 - ANOREXIA Status: Acute Plan: Continue Megace, encourage po intake, Glucerna shake TID - Plan continue antibiotics, PT/OT, social work therapist, speech therapy, respiratory th erapy Stable currently Continue Doxycycline Continue Dexamethasone O2 @ 3L/min NC PT for mobilization CM for SNF options
[2020-07-25] MEDS ORDERED: Bisacodyl 5 MG TAB PO PRN (17:46)
[2020-07-25] MEDS: Gabapentin 400 MG CAP PO SCH (20:21)
[2020-07-25] MEDS: Lisinopril 20 MG TAB PO SCH (20:21)
[2020-07-25] MEDS: Melatonin 3 MG TAB PO SCH (20:21)
[2020-07-25] MEDS: DULoxetine 60 MG CAP PO SCH (20:21)
[2020-07-25] MEDS: Ascorbic Acid 500 mg Chewable Tablet PO SCH (20:21)
[2020-07-25] MEDS: Docusate 100 MG CAP PO SCH (20:21)
[2020-07-25] MEDS: Tamsulosin HCl 0.4 MG CAP PO SCH (20:22)
[2020-07-25] MEDS: Latanoprost 0.005% Ophth Soln 2.5 ml Bottle EA EYE SCH (21:24)
[2020-07-26] MEDS ORDERED: Non-Formulary Item 1 EACH (Cholecalciferol (Vitamin D3) [Vitamin D] 1000 UNIT Capsule) PO SCH (09:00)
[2020-07-26] MEDS ORDERED: Non-Formulary Item 1 EACH (Zinc [Zinc] 50 MG Tablet) PO SCH (09:00)
[2020-07-26] MEDS: Megestrol Acetate 40 MG TAB PO SCH (09:47)
[2020-07-26] MEDS: Ascorbic Acid 500 mg Chewable Tablet PO SCH ×3 (09:47→19:52)
[2020-07-26] MEDS: Cyanocobalamin (Vitamin B-12) 1,000 MCG TAB PO SCH (09:48)
[2020-07-26] MEDS: Hydrochlorothiazide 25 MG TAB PO SCH (09:49)
[2020-07-26] MEDS: Gabapentin 400 MG CAP PO SCH ×3 (09:49→19:51)
[2020-07-26] MEDS: guaiFENesin ER 600 MG TAB PO SCH ×2 (09:50→19:52)
[2020-07-26] MEDS: Doxycycline 100 MG CAP PO SCH ×2 (09:50→19:50)
[2020-07-26] MEDS: Dexamethasone 10 MG in Sodium Chloride 0.9% 50 ML IVPB SCH (09:50)
[2020-07-26] MEDS: Cholecalciferol 1,000 UNITS (25 MCG) TAB PO SCH (09:57)
[2020-07-26] MEDS: levETIRAcetam in NS 1,000 MG in Premix Bag 1 BAG IVPB SCH ×2 (11:52→19:53)
--- NOTE | 2020-07-26 11:59 | PDOC.HOSPP ---
- Subjective Encounter Date: 07/26/20 Encounter Time: 11:45 Subjective: f/u for COVID PNA on Doxycycline/Decadron/O2 supplementation. No new complaints. Coughing frequently. s/p convalescent plasma. - Objective Vital Signs & Weight: Vital Signs (12 hours) Temp Pulse Resp BP Pulse Ox 07/26/20 09:00 98.1 F 75 17 143/86 H 97 07/26/20 04:29 67 20 95 07/26/20 01:00 58 L 95 Weight Admit Weight 304 lb 3.2 oz Weight 304 lb 3.2 oz Most Recent Monitor Data Heart Rate from ECG 74 I&O: 07/25/20 07/26/20 07/27/20 06:59 06:59 06:59 Intake Total 900 1270 Balance 900 1270 Result Diagrams: 07/23/20 06:09 07/21/20 05:44 Additional Labs: Microbiology 07/20/20 15:22 Venous blood - Right Hand Blood Culture - Final Coagulase Neg Staphylococcus Coagulase Neg Staphylococcus#2 07/20/20 15:22 Venous blood - Left Arm Blood Culture - Final NO GROWTH IN 5 DAYS Laboratory Tests 07/20/20 07/20/20 07/20/20 15:22 18:33 19:14 Lactic Acid 2.2 0.8 C-Reactive Protein SARS-CoV-2 (PCR) DETECTED A* 07/20/20 22:28 Lactic Acid C-Reactive Protein 7.24 H SARS-CoV-2 (PCR) Hospitalist ROS - Medication Medications: Active Medications Generic Name Dose Route Start Last Admin Trade Name Freq PRN Reason Stop Dose Admin Acetaminophen 650 mg 07/21/20 04:38 07/21/20 05:54 Acetaminophen 650 Mg Suppository [place] 650 mg Q4H PRN Administration Headache/Fever or Pain Acetaminophen 650 mg 07/22/20 03:29 07/25/20 12:38 Acetaminophen 325 Mg Tab PO 650 mg Q4H PRN Administration Headache/Fever or Pain Ascorbic Acid 500 mg 07/25/20 21:00 07/26/20 09:47 Ascorbic Acid 500 Mg Chewable Tablet PO 500 mg TID TINA Administration Cholecalciferol 10,000 units 07/26/20 09:00 07/26/20 09:57 Cholecalciferol 1,000 Units (25 Mcg) Tab PO 10,000 units DAILY TINA Administration Cyanocobalamin 500 mcg 07/26/20 09:00 07/26/20 09:48 Cyanocobalamin (Vitamin B-12) 1,000 Mcg Tab PO 500 mcg DAILY TINA Administration Docusate Sodium 200 mg 07/25/20 21:00 07/25/20 20:21 Docusate 100 Mg Cap PO 200 mg HS TINA Administration Doxycycline Hyclate 100 mg 07/22/20 21:00 07/26/20 09:50 Doxycycline 100 Mg Cap PO 100 mg BID TINA Administration Duloxetine HCl 120 mg 07/25/20 21:00 07/25/20 20:21 Duloxetine 60 Mg Cap PO 120 mg HS TINA Administration Gabapentin 800 mg 07/25/20 21:00 07/26/20 09:49 Gabapentin 400 Mg Cap PO 800 mg TID TINA Administration Guaifenesin 600 mg 07/21/20 21:00 07/26/20 09:50 Guaifenesin Er 600 Mg Tab PO 600 mg Q12HR TINA Administration Hydrochlorothiazide 25 mg 07/21/20 09:00 07/26/20 09:49 Hydrochlorothiazide 25 Mg Tab PO 25 mg DAILY TINA Administration Dexamethasone 10 mg/ Sodium 51 mls @ 100 mls/hr 07/21/20 09:00 07/26/20 09:50 Chloride IVPB 51 mls DAILY TINA Administration Levetiracetam 1,000 mg/ Device 100 mls @ 200 mls/hr 07/21/20 09:00 07/25/20 20:34 IVPB 100 mls BID TINA Administration Latanoprost 1 drop 07/25/20 21:00 07/25/20 21:24 Latanoprost 0.005% Oph Soln 2.5 Ml Bottle EA EYE 1 drop HS TINA Administration Lisinopril 40 mg 07/25/20 21:00 07/25/20 20:21 Lisinopril 20 Mg Tab PO 40 mg HS TINA Administration Megestrol Acetate 40 mg 07/25/20 09:00 07/26/20 09:47 Megestrol Acetate 40 Mg Tab PO 40 mg DAILY TINA Administration Melatonin 3 mg 07/25/20 21:00 07/25/20 20:21 Melatonin 3 Mg Tab PO 3 mg HS TINA Administration Metoprolol Succinate 100 mg 07/21/20 09:00 07/26/20 09:51 Metoprolol Succinate Xl 100 Mg Tab PO 100 mg DAILY TINA Administration Pantoprazole Sodium 40 mg 07/26/20 09:00 07/26/20 09:49 Pantoprazole 40 Mg Tab PO 40 mg DAILY TINA Administration Tamsulosin HCl 0.4 mg 07/21/20 21:00 07/25/20 20:22 Tamsulosin Hcl 0.4 Mg Cap PO 0.4 mg HS TINA Administration - Exam General Appearance: NAD, awake alert Eye: PERRL, anicteric sclera ENT: normocephalic atraumatic, no oropharyngeal lesions Neck: supple, symmetric, no JVD, no thyromegaly, no lymphadenopathy Heart: RRR, no gallops, no rubs, normal peripheral pulses Heart - other findings: S1, S2 Respiratory: rhonchi, tachypneic Respiratory - other findings: coarse sounds bilat, diminished in bases Gastrointestinal: soft, non-tender, non-distended, normal bowel sounds, no palpable masses Gastrointestinal - other findings: obese Extremities: no cyanosis, no clubbing, 1+ LE edema Skin: normal turgor Neurological: cranial nerve grossly intact, no new deficit, hemiplegia, speech deficit Musculoskeletal: normal tone, generalized weakness Psychiatric: oriented to person, oriented to place Hosp A/P (1) Pneumonia due to COVID-19 virus Code(s): U07.1 - COVID-19; J12.89 - OTHER VIRAL PNEUMONIA Status: Acute Plan: Continue Doxycycline/Decadron/O2 support (2) Acute respiratory failure with hypoxia Code(s): J96.01 - ACUTE RESPIRATORY FAILURE WITH HYPOXIA Status: Acute Plan: Continue O2 supplementation (3) Seizures Code(s): R56.9 - UNSPECIFIED CONVULSIONS Status: Chronic Plan: Continue Keppra 1000mg BID (4) Anorexia Code(s): R63.0 - ANOREXIA Status: Acute Plan: Continue Megace - Plan continue antibiotics, PT/OT, social service agency director, speech therapy, respiratory therapy, DVT proph w/SCDs Stable currently Continue Doxycycline Continue Dexamethasone O2 @ 3L/min NC PT for mobilization CM for SNF options Continue Vit C PCXR in am
[2020-07-26] MEDS: DULoxetine 60 MG CAP PO SCH (19:50)
[2020-07-26] MEDS: Docusate 100 MG CAP PO SCH (19:50)
[2020-07-26] MEDS: Tamsulosin HCl 0.4 MG CAP PO SCH (19:52)
[2020-07-26] MEDS: Lisinopril 20 MG TAB PO SCH (19:52)
[2020-07-26] MEDS: Latanoprost 0.005% Ophth Soln 2.5 ml Bottle EA EYE SCH (19:52)
[2020-07-26] MEDS: Melatonin 3 MG TAB PO SCH (19:52)
--- NOTE | 2020-07-27 08:07 | RAD ---
XR Chest 1 View Portable History: Covid pneumonia Comparison: Chest radiograph July 21, 2020 Findings: Lungs are hypoinflated with vascular crowding and spurious enlargement of the cardiac silho uette. No pneumothorax. No effusion. No high-grade consolidation. Patient is rotated to the right. No acute osseous abnormality. Impression: Severe lung hypoinflation with atelectatic changes.
[2020-07-27] MEDS: Cholecalciferol 1,000 UNITS (25 MCG) TAB PO SCH (09:02)
[2020-07-27] MEDS: Cyanocobalamin (Vitamin B-12) 1,000 MCG TAB PO SCH (09:03)
[2020-07-27] MEDS: Ascorbic Acid 500 mg Chewable Tablet PO SCH ×3 (09:03→20:32)
[2020-07-27] MEDS: guaiFENesin ER 600 MG TAB PO SCH ×2 (09:04→20:32)
[2020-07-27] MEDS: Megestrol Acetate 40 MG TAB PO SCH (09:04)
[2020-07-27] MEDS: Doxycycline 100 MG CAP PO SCH ×2 (09:04→20:31)
[2020-07-27] MEDS: Acetaminophen 325 MG TAB PO PRN ×2 (09:04→20:32)
[2020-07-27] MEDS: Gabapentin 400 MG CAP PO SCH ×3 (09:04→20:32)
[2020-07-27] MEDS: Hydrochlorothiazide 25 MG TAB PO SCH (09:05)
[2020-07-27] MEDS: Dexamethasone 10 MG in Sodium Chloride 0.9% 50 ML IVPB SCH (09:05)
--- NOTE | 2020-07-27 10:54 | PDOC.HOSPP ---
- Subjective Encounter Date: 07/27/20 Encounter Time: 10:45 Subjective: f/u for COVID PNA on Doxycycline/Decadron/O2 supplementation. s/p convalescent plasma and remains on O2 support @ 3L/min ND. - Objective Vital Signs & Weight: Vital Signs (12 hours) Temp Pulse Resp BP Pulse Ox 07/27/20 09:00 97 07/27/20 04:00 98.2 F 68 18 149/91 H 94 L 07/27/20 00:00 97.8 F 80 18 155/85 H 97 Weight Admit Weight 304 lb 3.2 oz Weight 304 lb 3.2 oz Most Recent Monitor Data Heart Rate from ECG 74 I&O: 07/26/20 07/27/20 07/28/20 06:59 06:59 06:59 Intake Total 1270 Balance 1270 Result Diagrams: 07/23/20 06:09 07/21/20 05:44 Additional Labs: Microbiology 07/20/20 15:22 Venous blood - Right Hand Blood Culture - Final Coagulase Neg Staphylococcus Coagulase Neg Staphylococcus#2 07/20/20 15:22 Venous blood - Left Arm Blood Culture - Final NO GROWTH IN 5 DAYS Laboratory Tests 07/20/20 07/20/20 07/20/20 15:22 18:33 19:14 Lactic Acid 2.2 0.8 C-Reactive Protein SARS-CoV-2 (PCR) DETECTED A* 07/20/20 22:28 Lactic Acid C-Reactive Protein 7.24 H SARS-CoV-2 (PCR) Radiology Reviewed by me: Yes (PCXR - hypoinflation, bibasilar atelectasis) Hospitalist ROS - Medication Medications: Active Medications Generic Name Dose Route Start Last Admin Trade Name Freq PRN Reason Stop Dose Admin Acetaminophen 650 mg 07/21/20 04:38 07/21/20 05:54 Acetaminophen 650 Mg Suppository [place] 650 mg Q4H PRN Administration Headache/Fever or Pain Acetaminophen 650 mg 07/22/20 03:29 07/27/20 09:04 Acetaminophen 325 Mg Tab PO 650 mg Q4H PRN Administration Headache/Fever or Pain Ascorbic Acid 500 mg 07/25/20 21:00 07/27/20 09:03 Ascorbic Acid 500 Mg Chewable Tablet PO 500 mg TID TINA Administration Cholecalciferol 10,000 units 07/26/20 09:00 07/27/20 09:02 Cholecalciferol 1,000 Units (25 Mcg) Tab PO 10,000 units DAILY TINA Administration Cyanocobalamin 500 mcg 07/26/20 09:00 07/27/20 09:03 Cyanocobalamin (Vitamin B-12) 1,000 Mcg Tab PO 500 mcg DAILY TINA Administration Docusate Sodium 200 mg 07/25/20 21:00 07/26/20 19:50 Docusate 100 Mg Cap PO 200 mg HS TINA Administration Doxycycline Hyclate 100 mg 07/22/20 21:00 07/27/20 09:04 Doxycycline 100 Mg Cap PO 100 mg BID TINA Administration Duloxetine HCl 120 mg 07/25/20 21:00 07/26/20 19:50 Duloxetine 60 Mg Cap PO 120 mg HS TINA Administration Gabapentin 800 mg 07/25/20 21:00 07/27/20 09:04 Gabapentin 400 Mg Cap PO 800 mg TID TINA Administration Guaifenesin 600 mg 07/21/20 21:00 07/27/20 09:04 Guaifenesin Er 600 Mg Tab PO 600 mg Q12HR TINA Administration Hydrochlorothiazide 25 mg 07/21/20 09:00 07/27/20 09:05 Hydrochlorothiazide 25 Mg Tab PO 25 mg DAILY TINA Administration Dexamethasone 10 mg/ Sodium 51 mls @ 100 mls/hr 07/21/20 09:00 07/27/20 09:05 Chloride IVPB 51 mls DAILY TINA Administration Levetiracetam 1,000 mg/ Device 100 mls @ 200 mls/hr 07/21/20 09:00 07/26/20 19:53 IVPB 100 mls BID TINA Administration Latanoprost 1 drop 07/25/20 21:00 07/26/20 19:52 Latanoprost 0.005% Ophth Soln 2.5 Ml Bottle EA EYE 1 drop HS TINA Administration Lisinopril 40 mg 07/25/20 21:00 07/26/20 19:52 Lisinopril 20 Mg Tab PO 40 mg HS TINA Administration Megestrol Acetate 40 mg 07/25/20 09:00 07/27/20 09:04 Megestrol Acetate 40 Mg Tab PO 40 mg DAILY TINA Administration Melatonin 3 mg 07/25/20 21:00 07/26/20 19:52 Melatonin 3 Mg Tab PO 3 mg HS TINA Administration Metoprolol Succinate 100 mg 07/21/20 09:00 07/27/20 09:05 Metoprolol Succinate Xl 100 Mg Tab PO 100 mg DAILY TINA Administration Pantoprazole Sodium 40 mg 07/26/20 09:00 07/27/20 09:05 Pantoprazole 40 Mg Tab PO 40 mg DAILY TINA Administration Tamsulosin HCl 0.4 mg 07/21/20 21:00 07/26/20 19:52 Tamsulosin Hcl 0.4 Mg Cap PO 0.4 mg HS TINA Administration - Exam General Appearance: NAD, awake alert Eye: PERRL, anicteric sclera ENT: normocephalic atraumatic, no oropharyngeal lesions, moist mucosa Neck: supple, symmetric, no JVD, no thyromegaly, no lymphadenopathy Heart: RRR, no gallops, no rubs, normal peripheral pulses Heart - other findings: S1, S2 Respiratory - other findings: diminished in bases, scattered coarse sounds Gastrointestinal: soft, non-tender, non-distended, normal bowel sounds, no palpable masses Gastrointestinal - other findings: obese Extremities: no cyanosis, no clubbing, 1+ LE edema Skin: normal turgor Neurological: cranial nerve grossly intact Neurological - other findings: R hemiparesis(chronic) Musculoskeletal: generalized weakness Psychiatric: oriented to person, oriented to place, somnolent Hosp A/P (1) Pneumonia due to COVID-19 virus Code(s): U07.1 - COVID-19; J12.89 - OTHER VIRAL PNEUMONIA Status: Acute Plan: Continue Doxycycline/Decadron/O2 support, s/p convalescent plasma (2) Acute respiratory failure with hypoxia Code(s): J96.01 - ACUTE RESPIRATORY FAILURE WITH HYPOXIA Status: Acute Plan: Continue O2 support 3L/min NC (3) Seizures Code(s): R56.9 - UNSPECIFIED CONVULSIONS Status: Chronic (4) Anorexia Code(s): R63.0 - ANOREXIA Status: Acute Plan: Improved, continue low-dose Megace - Plan continue antibiotics, PT/OT, transition social worker, speech therapy, respiratory therapy Stable currently Continue Doxycycline Continue Dexamethasone O2 @ 3L/min NC PT for mobilization Continue Vit C Likely d/c back to [facility] in 24h
[2020-07-27] MEDS: levETIRAcetam in NS 1,000 MG in Premix Bag 1 BAG IVPB SCH ×2 (11:20→20:33)
[2020-07-27] MEDS: Docusate 100 MG CAP PO SCH (20:30)
[2020-07-27] MEDS: Tamsulosin HCl 0.4 MG CAP PO SCH (20:31)
[2020-07-27] MEDS: Melatonin 3 MG TAB PO SCH (20:31)
[2020-07-27] MEDS: DULoxetine 60 MG CAP PO SCH (20:31)
[2020-07-27] MEDS: Lisinopril 20 MG TAB PO SCH (20:32)
[2020-07-27] MEDS: Latanoprost 0.005% Ophth Soln 2.5 ml Bottle EA EYE SCH (20:33)
[2020-07-28] MEDS: Cholecalciferol 1,000 UNITS (25 MCG) TAB PO SCH (08:09)
[2020-07-28] MEDS: Hydrochlorothiazide 25 MG TAB PO SCH (08:11)
[2020-07-28] MEDS: Gabapentin 400 MG CAP PO SCH (08:11)
[2020-07-28] MEDS: Megestrol Acetate 40 MG TAB PO SCH (08:12)
[2020-07-28] MEDS: Ascorbic Acid 500 mg Chewable Tablet PO SCH (08:12)
[2020-07-28] MEDS: Cyanocobalamin (Vitamin B-12) 1,000 MCG TAB PO SCH (08:12)
[2020-07-28] MEDS: guaiFENesin ER 600 MG TAB PO SCH (08:12)
[2020-07-28] MEDS: Doxycycline 100 MG CAP PO SCH (08:13)
[2020-07-28 08:49] VITALS: BP 146/84; TEMP 98
[2020-07-28] MEDS: Dexamethasone 10 MG in Sodium Chloride 0.9% 50 ML IVPB SCH (09:51)
[2020-07-28] MEDS: levETIRAcetam in NS 1,000 MG in Premix Bag 1 BAG IVPB SCH (09:57)
--- NOTE | 2020-07-28 11:55 | DIS ---
DATE OF ADMISSION: 07/20/2020 DATE OF DISCHARGE: 07/28/2020 DISCHARGE DIAGNOSES: 1. Pneumonia due to COVID-19 virus. 2. Acute hypoxic respiratory failure on 2 L/minute by nasal cannula. 3. Seizure disorder, stable. 4. Diabetes mellitus type 2, insulin requiring. 5. Bed-bound status, status post cerebrovascular accident with right hemiparesis. 6. Morbid obesity. CONSULTATIONS: None. PERTINENT LABORATORY AND X-RAY FINDINGS: Lactic acid level ranged between 0.8 to 2.2. CRP 7.24. CBC showed a white blood cell count ranging between 4.2 to 9.0. COVID-19 PCR detected on 07/20/2020. Blood cultures 1/2 positive for coagulase-negative Staphylococcus species likely skin contaminant. CT of the brain without contrast dated 07/20/2020, showed no acute intracranial process. Portable chest x-ray dated 07/20/2020, showed asymmetric opacification of the left lung zone. CT of the abdomen and pelvis dated 07/20/2020, showed no evidence of obstructive uropathy. No bowel obstruction. Bibasilar pleural effusions with lower lobe consolidation due to atelectasis. Portable chest x-ray dated 07/21/2020 showed right basilar atelectasis. HOSPITAL COURSE: The patient was initially admitted after presenting with increased shortness of breath with associated hypoxia with chest imaging showing bibasilar infiltrates concerning for pneumonia. The patient underwent COVID-19 PCR, which was positive on 07/20/2020, and placed in isolation protocol. The patient apparently had tested positive for COVID-19 prior to admission, however, developed increasing oxygen requirements and shortness of breath. The patient was placed initially on 4 L/minute by nasal cannula and given convalescent plasma. The patient was also placed on IV Decadron and continued on doxycycline through the remainder of the hospital course. The patient received vitamin C and zinc supplements and overall clinically stabilized with supportive management. The patient was weaned from oxygen supplementation from initial value of 4 L/minute by nasal cannula to a current value of 1 to 2 L/minute. The patient overall clinically stable with pulmonary supportive management. I have examined the patient at the time of discharge and discussed followup instructions. The patient verbalized understanding and agreement, ready for discharge on 07/28/2020. DISCHARGE MEDICATIONS: 1. Actos 15 mg p.o. daily. 2. Glargine insulin 50 units subcutaneously b.i.d. 3. Colace 200 mg p.o. at bedtime p.r.n. 4. Cymbalta 120 mg p.o. at bedtime. 5. Flomax 0.4 mg p.o. at bedtime. 6. Hydrochlorothiazide 25 mg p.o. daily. 7. Hydrocortisone ointment 0.5% one application topically daily p.r.n. 8. Latanoprost 0.005% one drop to each eye at bedtime. 9. Keppra 1000 mg p.o. b.i.d. 10. Lisinopril 40 mg p.o. at bedtime. 11. Melatonin 3 mg p.o. at bedtime. 12. Metoprolol succinate 100 mg p.o. daily. 13. Gabapentin 800 mg p.o. t.i.d. 14. NovoLog FlexPen 10 units subcutaneously a.c. 15. Omeprazole 20 mg p.o. daily. 16. Pravachol 20 mg p.o. at bedtime. 17. Vitamin B12 of 500 mcg p.o. daily. 18. Vitamin C 500 mg p.o. t.i.d. 19. Vitamin D3 of 5000 units p.o. daily. 20. Zinc 25 mg p.o. daily. 21. Decadron 6 mg p.o. daily x5 days. 22. Doxycycline 100 mg p.o. b.i.d. until 08/02/2020. FOLLOWUP: The patient may follow up with his primary care provider, Dr. Yvrose Robbins. CONDITION ON DISCHARGE: Fair. ACTIVITY: Ad-caro. DIET: ADA with ground consistency, nectar thick liquids with extra sauce and gravy. CODE STATUS: Full. SPECIAL INSTRUCTIONS: Continue oxygen supplementation at 2 L/minute by nasal cannula. [facility]. TIME SPENT: Total time preparing and coordinating discharge, 34 minutes. Job ID: [id number]
--- NOTE | 2020-08-01 16:31 | EKG ---
Test Reason : Blood Pressure : / mmHG Vent. Rate : 080 BPM Atrial Rate : 080 BPM P-R Int : 154 ms QRS Dur : 146 ms QT Int : 394 ms P-R-T Axes : 034 -55 003 degrees QTc Int : 454 ms Normal sinus rhythm Right bundle branch block Left anterior fascicular block Bifascicular block Minimal voltage criteria for LVH, may be normal variant Septal infarct , age undetermined Abnormal ECG Confirmed by SHAN CRAIN DO ([id number]), editor magazine CULLEN SAMAYOA ([id number]) on 08/01/2020 4:30:50 PM Referred By: Confirmed By:SHAN CRAIN DO
== END 2020-07-28 14:45 | DRG 871 ==
LOC: ERS 14:30 → T4-B 17:41
PROVIDERS: ADMIT Student in an Organized Health Care Education/Training Program; ATTEND Family Medicine
PROC: 8E0ZXY6 Isolation (ICD-10-PCS; principal; 2020-07-20)
PROC: XW13325 Transfusion of Convalescent Plasma (Nonautologous) into Peripheral Vein, Percutaneous Approach, New Technology Group 5 (ICD-10-PCS; 2020-07-21)
DX: A41.89 Other specified sepsis (principal); U07.1 COVID-19; J12.89 Other viral pneumonia; J96.01 Acute respiratory failure with hypoxia; I69.351 Hemiplegia and hemiparesis following cerebral infarction affecting right dominant side; Z68.41 Body mass index [BMI] 40.0-44.9, adult; G40.909 Epilepsy, unspecified, not intractable, without status epilepticus; E11.9 Type 2 diabetes mellitus without complications; N40.0 Benign prostatic hyperplasia without lower urinary tract symptoms; I10 Essential (primary) hypertension; K21.9 Gastro-esophageal reflux disease without esophagitis; F41.9 Anxiety disorder, unspecified; F32.9 Major depressive disorder, single episode, unspecified; E87.6 Hypokalemia; D64.9 Anemia, unspecified; R63.0 Anorexia; E66.01 Morbid (severe) obesity due to excess calories; Z74.01 Bed confinement status; Z79.4 Long term (current) use of insulin; Z79.899 Other long term (current) drug therapy
CPT/HCPCS: 36415; 36416; 36430; 70450; 71045; 74176; 80048; 80053; 80177; 81001; 83605; 83690; 84484; 85025; 85027; 85610; 86140; 86850; 86900; 86901; 87040; 87149; 87635; 93005; 94150; 96365; 96366; 96367; J0456; J0696; J1100; J1940; J1953; P9017; S0179; U0003